=== PATIENT | male | born 1970 | race Caucasian/White ===

== ENCOUNTER 2016-09-20 02:30 | Inpatient (IN) | payer MEDICAID ==
[~2016-09-20] VITALS: Ht 170.2 cm; Wt 90.7 kg
[2016-09-20] MEDS ORDERED: NACL 0.9% 1,000 ML IV SCH (02:31)
--- NOTE | 2016-09-20 02:33 | NUR ---
PT JORGE ALS. TAKEN TO BED 3
[2016-09-20 02:35] VITALS: BP 162/97
[2016-09-20] MEDS ORDERED: MORPHINE SULFATE 4 MG/ML SYR IVP ONE ×2 (02:35→03:55)
[2016-09-20] MEDS ORDERED: ONDANSETRON 4 MG/2 ML VIAL IVP ONE (02:35)
--- NOTE | 2016-09-20 02:35 | NUR ---
PT TAKEN TO CT
--- NOTE | 2016-09-20 02:44 | NUR ---
PT RETURN FROM CT
--- NOTE | 2016-09-20 02:45 | NUR ---
BIBA 46 Y/O M W/ C/O EPIGASTRIC PAIN AND NAUSEA X 4 HRS AGO . MED HX HERNIA TO L UPPER QUADRANT AND DM. PATIENT STATES PAIN OF 10/10 AT THIS TIME; VSS; PATIENT POSITIONED FOR COMFORT; HOB ELEVATED; BEDRAILS UP X2; BED DOWN. ER MD MADE AWARE OF PT STATUS.
[2016-09-20 03:01] LABS: BASOPHILS # (AUTO) 0.2 K/uL (0.00-0.22); BASOPHILS % (AUTO) 2.9 % (0.0-2.0); EOSINOPHILS # (AUTO) 0.2 K/uL (0-0.4); EOSINOPHILS % (AUTO) 2.5 % (0.0-4.0); HEMATOCRIT 43.9 % (36-52); HEMOGLOBIN 14.1 g/dL (12.0-18.0); LYMPHOCYTES # (AUTO) 1.6 K/uL (2.0-11.5); LYMPHOCYTES % (AUTO) 24.7 % (20.5-51.1); MEAN CORPUSCULAR HEMOGLOBIN 28 pg (27-31); MEAN CORPUSCULAR HGB CONC 32 g/dL (33-37); MEAN CORPUSCULAR VOLUME 87 fL (80-94); MONOCYTES # (AUTO) 0.2 K/uL (0.8-1.0); MONOCYTES % (AUTO) 3.7 % (1.7-9.3); NEUTROPHILS # (AUTO) 4.4 K/uL (1.8-7.7); NEUTROPHILS % (AUTO) 66.2 % (42.2-75.2); PLATELET COUNT (AUTO) 176 K/uL (140-450); RED BLOOD CELL COUNT(AUTO) 5.06 MIL/uL (4.20-6.10); RED CELL DISTRIBUTION WIDTH 13.6 % (11.6-13.7); WHITE BLOOD COUNT (AUTO) 6.6 K/uL (4.8-10.8)
--- NOTE | 2016-09-20 03:12 | NUR ---
X-Ray at bedside.
[2016-09-20 03:16] LABS: ALBUMIN 3.6 g/dL (3.4-5.0); ANION GAP 10.4 (8-16); CALCIUM 8.1 mg/dL (8.5-10.1); CARBON DIOXIDE 28.8 mmol/L (21-32); CREATININE 0.9 mg/dL (0.7-1.3); POTASSIUM 3.2 mmol/L (3.5-5.1); TOTAL BILIRUBIN 0.5 mg/dL (0.0-1.0); TOTAL PROTEIN, SERUM 7.8 g/dL (6.4-8.2)
--- NOTE | 2016-09-20 03:23 | NUR ---
LAST TIME PT ATE WAS 10:00AM BREAKFAST BURRITO. LAST DRINK 23:00 09/19/16 JUICE
--- NOTE | 2016-09-20 03:31 | NUR ---
Patient noted to have existing wounds upon arrival to ER. Photos taken of wound and placed in chart. Wound covered with dressing. Physician informed.
--- NOTE | 2016-09-20 03:38 | NUR ---
DR. ARAMBULA AT BEDSIDE EVALUATING PT.
--- NOTE | 2016-09-20 03:40 | NUR ---
DR. RIBERA OF [facility] EVALUATING PATIENT AT BEDSIDE
--- NOTE | 2016-09-20 03:49 | NUR ---
Dr. Fong evaluating patient at bedside.
[2016-09-20] MEDS ORDERED: POTASSIUM CHL 20 MEQ/NACL 0.9% 1,000 ML IV ONE (04:20)
--- NOTE | 2016-09-20 04:56 | NUR ---
Patient will be admitted to care of DR. CONCEPCION. Admited to TELE. Will go to [id number]. Belongings list completed. Report GIVEN TO FLAKITA LOWERY. TRANSFERRED TO FLOOR VIA GURNEY ACCOMPANIED BY RN AND EMT ON GUARDED CONDITION. ATTACHED TO PIGMENT MAKING SUPERVISOR.
--- NOTE | 2016-09-20 05:00 | NUR ---
ADMITTED THIS 46 YEAR OLD MALE FROM ER WITH CC OF ABDOMINAL PAIN, AMBULATORY TO BED WITH ASSIST, ASSESSMENT DONE, VITAL SIGNS TAKEN, BP SLIGHTLY ELEVATED, DENIES ANY PAIN, PT WANTS SOMETHING TO DRINK, WILL WAIT FOR DOCTOR'S ORDERS, ORIENTED TO ROOM AND CALL LIGHT, SAFETY MEASURES IN PLACE, CALL LIGHT WITHIN REACH.
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
[2016-09-20] MEDS: NACL 0.9% 1,000 ML IV SCH ×2 (05:17→14:50)
[2016-09-20 05:20] VITALS: BP 150/95
[2016-09-20] MEDS ORDERED: ONDANSETRON 4 MG/2 ML VIAL IM/IVP PRN (05:20)
[2016-09-20] MEDS ORDERED: HYDROcodone/APAP 7.5/325 MG 1 TAB PO PRN (05:20)
[2016-09-20] MEDS ORDERED: DOCUSATE SODIUM 100 MG GELCAP PO PRN (05:20)
[2016-09-20] MEDS ORDERED: DEXTROSE 50% 50 ML SYR IVP PRN (05:50)
[2016-09-20] MEDS ORDERED: INSULIN LISPRO SLIDING SCALE 100 UNITS/ML VIAL SUBQ PRN (05:50)
--- NOTE | 2016-09-20 05:50 | NUR ---
DR ARAMBULA AND MANAGER MINING YOLI TALKED TO PT, DR ARAMBULA ORDERED PSYCH CONSULT WITH DR SCALES.
[2016-09-20] MEDS ORDERED: KETOROLAC 30 MG/ML VIAL IVP PRN (05:55)
[2016-09-20] MEDS ORDERED: KCL 20 MEQ/WATER INJ PREMIX 200 ML IV SCH (06:00)
--- NOTE | 2016-09-20 06:13 | NUR ---
CHARGE NURSE KRISTINA TRIED TO INSERT NGT BUT PT REFUSED SAYING "TAKE IT OUT, TAKE IT OUT, NO MORE", RISK AND BENEFITS EXPLAINED BUT PT STILL REFUSING, DR ARAMBULA MADE AWARE.
[2016-09-20] MEDS: HYDROmorphone 1 MG/ML AMP IVP PRN ×2 (06:25→22:06)
[2016-09-20 06:26] LABS: PROTHROMBIN TIME 10.6 secs (10.8-13.4)
[2016-09-20] MEDS: BLOOD GLUCOSE MONITORING 1 DEV DEV FS SCH ×4 (06:30→21:00)
[2016-09-20 07:15] LABS: AMYLASE 33 U/L (25-115); FREE T4 (FREE THYROXINE) 1.01 ng/dL (0.76-1.46); PHOSPHORUS 2.6 mg/dL (2.5-4.9)
[2016-09-20 07:17] LABS: APPEARANCE,URINE CLEAR (CLEAR); BILIRUBIN,URINE NEGATIVE (NEGATIVE); BLOOD, URINE NEGATIVE (NEGATIVE); COLOR,URINE YELLOW (YELLOW); LEUKOCYTE ESTERASE ,URINE NEGATIVE (NEGATIVE); NITRITE, URINE NEGATIVE (NEGATIVE); PROTEIN,URINE NEGATIVE (NEGATIVE); UGLUCOSE NEGATIVE (NEGATIVE)
[2016-09-20 07:28] LABS: ALCOHOL, BLOOD < 3 mg/dL (<3); CHOL/HDL RATIO 2.6 (1-4.5); CHOLESTEROL 133 mg/dL (<200); HDL CHOLESTEROL 52 mg/dL (40-60); LDL (CALC) 67 mg/dL (60-100); TRIGLYCERIDES 72 mg/dL (30-150)
--- NOTE | 2016-09-20 07:47 | NUR ---
PATIENT LEFT THE UNIT FOR SURGERY
[2016-09-20 07:54] LABS: AMPHETAMINE, URINE POS. ng/ml (NEG <=1000); BARBITURATE, URINE NEG. ng/ml (NEG <=200); BENZODIAZEPINE, URINE NEG. ng/mL (NEG <=200); CANNABINOID, URINE NEG. ng/mL (NEG <=50); COCAINE, URINE NEG. ng/mL (NEG <=300); OPIATE, URINE POS. ng/mL (NEG <=2000); PHENCYCLIDINE SCREEN,URINE NEG. ng/mL (NEG <=25)
[2016-09-20] MEDS ORDERED: SUCCINYLCHOLINE CHLORIDE 200 MG/10 ML VIAL IVP ONE (07:57)
[2016-09-20] MEDS ORDERED: KETOROLAC 30 MG/ML VIAL ONE (07:57)
[2016-09-20] MEDS ORDERED: PROPOFOL 200 MG/20 ML VIAL IV ONE (07:57)
[2016-09-20] MEDS ORDERED: PHENYLEPHRINE 10 MG/ML VIAL ONE (07:57)
[2016-09-20] MEDS ORDERED: ROCURONIUM 50 MG/5 ML VIAL IV ONE (07:57)
[2016-09-20] MEDS ORDERED: DESFLURANE 240 ML BTL INH ONE (07:57)
[2016-09-20] MEDS ORDERED: GLYCOPYRROLATE 0.2 MG/ML VIAL ONE (07:57)
[2016-09-20] MEDS ORDERED: ONDANSETRON 4 MG/2 ML VIAL ONE (07:57)
[2016-09-20] MEDS ORDERED: ceFAZolin 1,000 MG VIAL ONE (08:06)
[2016-09-20] MEDS ORDERED: fentaNYL 0.05 MG/ML VIAL ONE (08:08)
[2016-09-20] MEDS ORDERED: BUPIVACAINE-MPF/EPI 0.5% 30 ML VIAL INJ ONE (08:17)
[2016-09-20] MEDS ORDERED: HYDROmorphone 1 MG/ML AMP IVP PRN (08:30)
[2016-09-20] MEDS ORDERED: ONDANSETRON 4 MG/2 ML VIAL IVP PRN (08:30)
[2016-09-20] MEDS ORDERED: BLOOD GLUCOSE MONITORING 1 DEV DEV FS SCH (08:32)
[2016-09-20] MEDS: PANTOPRAZOLE 40 MG INJ VIAL IVP SCH (09:00)
[2016-09-20] MEDS ORDERED: POTASSIUM CHLORIDE 10 MEQ TABER PO ONE (09:40)
--- NOTE | 2016-09-20 09:40 | NUR ---
PATIENT HAS BEEN SCREENED AND CATEGORIZED MODERATE NUTRITION RISK. PATIENT WILL BE SEEN WITHIN 3-5 DAYS OF ADMISSION. 09/22/16-09/24/[address]
--- NOTE | 2016-09-20 10:05 | NUR ---
PATIENT BACK FROM SURGERY. PT S/P VENTRAL HERNIA REPAIR. DRESSING TO THE ABD CLEAN DRY AND INTACT. TEMP 96.8 BP: 115/79 HR: 52 O2 SAT: 100 ON ROOM AIR. WILL CONTINUE TO MONITOR
[2016-09-20] MEDS ORDERED: LEVOFLOXACIN 500 MG/D5W PREMIX 100 ML IV SCH (11:00)
[2016-09-20] MEDS ORDERED: ESCITALOPRAM 20 MG TAB PO SCH (11:24)
[2016-09-20 12:00] VITALS: BP 118/77
[2016-09-20] MEDS ORDERED: metroNIDAZOLE 500 MG/NS PREMIX 100 ML IV SCH (13:00)
--- NOTE | 2016-09-20 13:00 | NUR ---
PATIENT ASLEEP IN BED. NO S/S OF DISTRESS NOTED
[2016-09-20 16:00] VITALS: BP 118/75
--- NOTE | 2016-09-20 18:00 | NUR ---
PATIENT TOLERATING FULL LIQUID DIET WELL
--- NOTE | 2016-09-20 19:20 | NUR ---
PATIENT REPORT GIVEN AT BEDSIDE. PATIENT ENDORSED IN STABLE CONDITION
--- NOTE | 2016-09-20 19:30 | NUR ---
RECEIVED REPORTS FROM DAY RN. PATIENT RESTING IN BED, NO S/S OF ACUTE DISTRESS NOTED, ALERT AWAKE AND ORIENTED X4. PATIENT DENIES PAIN AT THIS TIME. IV PATENT AND INTACT, FLUIDS INFUSING WELL. DRESSING LUQ DRY AND INTACT. BOWL SOUNDS ACTIVE AND PRESENT IN ALL 4 QUADRANTS. PLAN OF CARE DISCUSSED, VERBALIZED UNDERSTANDING. CALL LIGHT WITHIN REACH, SAFETY MEASURE ENSURED, WILL CONTINUE TO MONITOR.
[2016-09-20 20:00] VITALS: BP 130/92
--- NOTE | 2016-09-20 22:30 | NUR ---
PATIENT ASLEEP IN BED, RESPIRATION EVEN AND UNLABORED, NO S/S OF ACUTE DISTRESS NOTED, WILL CONTINUE TO MONITOR
[2016-09-21] VITALS: BP 127/79
[2016-09-21] MEDS: HYDROmorphone 1 MG/ML AMP IVP PRN ×3 (01:54→20:18)
--- NOTE | 2016-09-21 03:24 | NUR ---
PATIENT ASLEEP IN BED, RESPIRATION EVEN AND UNLABORED, NO S/S OF ACUTE DISTRESS NOTED, WILL CONTINUE TO MONITOR
[2016-09-21 04:00] VITALS: BP 117/71
--- NOTE | 2016-09-21 05:13 | NUR ---
PATIENT REPORTED PAIN, PAIN MEDICATION GIVEN ORDERED, WILL CONTINUE TO MONITOR
[2016-09-21 06:24] LABS: LYMPHOCYTES # (AUTO) 1.4 K/uL (2.0-11.5); MONOCYTES # (AUTO) 0.4 K/uL (0.8-1.0); RED CELL DISTRIBUTION WIDTH 13.8 % (11.6-13.7)
[2016-09-21] MEDS: BLOOD GLUCOSE MONITORING 1 DEV DEV FS SCH ×5 (06:46→21:31)
[2016-09-21] MEDS: NACL 0.9% 1,000 ML IV SCH ×3 (06:47→20:41)
[2016-09-21 06:53] LABS: BASOPHILS # (AUTO) 0.1 K/uL (0.00-0.22); BASOPHILS % (AUTO) 2.2 % (0.0-2.0); EOSINOPHILS # (AUTO) 0.3 K/uL (0-0.4); HEMOGLOBIN 13.1 g/dL (12.0-18.0); LYMPHOCYTES % (AUTO) 21.3 % (20.5-51.1); MEAN CORPUSCULAR HEMOGLOBIN 29 pg (27-31); MEAN CORPUSCULAR HGB CONC 34 g/dL (33-37); MEAN CORPUSCULAR VOLUME 87 fL (80-94); MONOCYTES % (AUTO) 5.6 % (1.7-9.3); NEUTROPHILS # (AUTO) 4.4 K/uL (1.8-7.7); NEUTROPHILS % (AUTO) 66.9 % (42.2-75.2); PLATELET COUNT (AUTO) 154 K/uL (140-450); RED BLOOD CELL COUNT(AUTO) 4.49 MIL/uL (4.20-6.10); WHITE BLOOD COUNT (AUTO) 6.6 K/uL (4.8-10.8)
--- NOTE | 2016-09-21 07:20 | NUR ---
ENDORSED PLAN OF CARE TO DAY RN. PATIENT IS IN STABLE CONDITION.
--- NOTE | 2016-09-21 07:20 | NUR ---
RECEIVED PATIENT REPORT AT BEDSIDE. PATIENT ASLEEP BUT EASILY ABUSABLE. NO S/S OF DISTRESS NOTED. IV LINE TO THE LEFT AC INTACT WITH IVF INFUSING WELL. PATIENT ON TELE MONITORING. BED LOWERED WITH CALL LIGHT WITHIN REACH. WILL CONTINUE TO MONITOR
[2016-09-21 07:25] LABS: ANION GAP 9.6 (8-16); CALCIUM 7.9 mg/dL (8.5-10.1); CARBON DIOXIDE 29.1 mmol/L (21-32); CREATININE 0.7 mg/dL (0.7-1.3); POTASSIUM 3.7 mmol/L (3.5-5.1)
[2016-09-21 07:50] LABS: MAGNESIUM 1.6 mg/dL (1.8-2.4); PHOSPHORUS 3.3 mg/dL (2.5-4.9)
[2016-09-21 08:00] VITALS: BP 138/89
[2016-09-21] MEDS: PANTOPRAZOLE 40 MG INJ VIAL IVP SCH (08:34)
[2016-09-21] MEDS: ESCITALOPRAM 20 MG TAB PO SCH (08:34)
[2016-09-21 09:13] LABS: T4 (THYROXINE) 5.1 ug/dL (4.5-12.0)
[2016-09-21 12:00] VITALS: BP 129/90
--- NOTE | 2016-09-21 12:30 | NUR ---
PATIENT AMBULATED TO THE BATHROOM. PATIENT REPORTS OF PASSING GAS BUT NO BM. NO S/S OF DISTRESS NOTED
[2016-09-21] MEDS ORDERED: POLYETHYLENE GLYCOL 17 GM/PKT PO SCH (12:59)
--- NOTE | 2016-09-21 13:04 | NUR ---
PATIENT SEEN BY DR RIDDLE. WOUND DRESSING REMOVED BY THE DOCTOR. DOMINGO CLEAN, DRY AND INTACT. DR ORDERS TO KEEP THE INCISION OPEN TO AIR
[2016-09-21 16:00] VITALS: BP 134/86
--- NOTE | 2016-09-21 18:20 | NUR ---
PATIENT TOLERATED REGULAR DIET WELL. NO C/O PAIN
--- NOTE | 2016-09-21 19:18 | NUR ---
PATIENT REPORT GIVEN AT BEDSIDE. PATIENT ENDORSED IN STABLE CONDITION
--- NOTE | 2016-09-21 19:19 | NUR ---
RECEIVED REPORT,ASSUMED CARE. PT AWAKE, ALERT AND ABLE TO MAKE NEEDS KNOWN. NO S/S OF RESPIRATORY DISTRESS AT THIS TIME. NO C/O PAIN. IV ACCESS TO LT AC, GAUGE 20 INTACT AND PATENT. DISCUSSED PLAN OF CARE, PT VERBALIZED UNDERSTANDING. FALL PRECAUTION IN PLACE AT ALL TIMES. ABDOMINAL SURGICAL INCISION WITH DRESSING, NO ACTIVE BLEEDING NOTED AT THIS TIME. WILL CONTINUE TO MONITOR.
[2016-09-21 20:00] VITALS: BP 142/96
--- NOTE | 2016-09-21 20:58 | NUR ---
PT REPORTS RELIEF FROM PAIN 0/10. NO ACUTE CHANGES NOTED. NO S/S OF RESPIRATORY DISTRESS. WILL CONTINUE TO MONITOR.
--- NOTE | 2016-09-21 21:31 | NUR ---
BLOOD SUGAR CHECKED, 100MG/DL. NO INSULIN PER SLIDING SCALE.
[2016-09-22] VITALS: BP 140/93
[2016-09-22] MEDS: HYDROmorphone 1 MG/ML AMP IVP PRN (01:34)
--- NOTE | 2016-09-22 02:58 | NUR ---
PT AWAKE, COMPLAINS OF LOWER ABDOMINAL PAIN. 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 PT C/O CONSTIPATION, ASSISTED TO THE BATHROOM FOR BOWEL ELIMINATION BUT UNSUCCESSFUL. PRUNE JUICE GIVEN AND ENCOURAGED INCREASE FLUID INTAKE. MEDICATED WITH NORCO 7.5/325MG ORDERED. WILL CONTINUE TO MONITOR.
--- NOTE | 2016-09-22 03:30 | NUR ---
PT REPORTS RELIEF OF PAIN, "I WENT TO THE BATHROOM AND JUST PASSED GAS. I FEEL BETTER."
[2016-09-22 04:00] VITALS: BP 116/68
[2016-09-22] MEDS: BLOOD GLUCOSE MONITORING 1 DEV DEV FS SCH ×4 (06:33→21:07)
[2016-09-22] MEDS ORDERED: MAG SULF 2000 MG/WATER PREMIX 50 ML IV SCH (07:00)
[2016-09-22] MEDS ORDERED: BISACODYL 5 MG TABEC PO SCH (07:00)
[2016-09-22 07:06] LABS: BASOPHILS # (AUTO) 0.2 K/uL (0.00-0.22); EOSINOPHILS # (AUTO) 0.1 K/uL (0-0.4); EOSINOPHILS % (AUTO) 1.7 % (0.0-4.0); HEMATOCRIT 39.7 % (36-52); HEMOGLOBIN 13.2 g/dL (12.0-18.0); LYMPHOCYTES % (AUTO) 15.3 % (20.5-51.1); MEAN CORPUSCULAR HEMOGLOBIN 29 pg (27-31); MEAN CORPUSCULAR HGB CONC 33 g/dL (33-37); MEAN CORPUSCULAR VOLUME 86 fL (80-94); MONOCYTES # (AUTO) 0.5 K/uL (0.8-1.0); MONOCYTES % (AUTO) 7.3 % (1.7-9.3); NEUTROPHILS # (AUTO) 4.7 K/uL (1.8-7.7); NEUTROPHILS % (AUTO) 72.7 % (42.2-75.2); PLATELET COUNT (AUTO) 154 K/uL (140-450); RED BLOOD CELL COUNT(AUTO) 4.62 MIL/uL (4.20-6.10); RED CELL DISTRIBUTION WIDTH 13.2 % (11.6-13.7); WHITE BLOOD COUNT (AUTO) 6.5 K/uL (4.8-10.8)
--- NOTE | 2016-09-22 07:10 | NUR ---
RECEIVED PATIENT REPORT AT BEDSIDE. PATIENT AWAKE, ALERT AND ORIENTED. PATIENT C/O CONSTIPATION. WILL MEDICATE. IV LINE TO THE LEFT AC INTACT WITH MG RIDER INFUSING. PATIENT ON TELE MONITORING. BED LOWERED WITH CALL LIGHT WITHIN REACH. WILL CONTINUE TO MONITOR
[2016-09-22 07:19] LABS: ANION GAP 8.3 (8-16); CALCIUM 7.9 mg/dL (8.5-10.1); CARBON DIOXIDE 29.4 mmol/L (21-32); CREATININE 0.6 mg/dL (0.7-1.3); POTASSIUM 3.7 mmol/L (3.5-5.1)
[2016-09-22 07:23] LABS: MAGNESIUM 1.7 mg/dL (1.8-2.4); PHOSPHORUS 3.3 mg/dL (2.5-4.9)
--- NOTE | 2016-09-22 07:30 | NUR ---
PT AWAKE AND VERBALLY RESPONSIVE. NO S/S OF RESPIRATORY DISTRESS. PT IN STABLE CONDITION. STARTED ON MG 2GM IVPB NO ADVERSE REACTION NOTED AT THIS TIME. ENDORSED TO NEXT SHIFT FOR CONTINUITY OF CARE AND TO GIVE DULCOLAX.
[2016-09-22 08:00] VITALS: BP 136/79
[2016-09-22] MEDS: HYDROcodone/APAP 5/325 MG 1 TAB TAB PO SCH ×4 (08:00→17:37)
--- NOTE | 2016-09-22 08:00 | NUR ---
PATIENT AMBULATED TO THE BATHROOM TO HAVE A BM BUT WAS UNABLE. PATIENT STATES THAT HE WAS ABLE TO PASS GAS AND WAS RELIEVED. PATIENT DENIES PAIN ON HIS INCISION SITE AND STATES THAT HIS PAIN IS CAUSED BY HIS CONSTIPATION. WILL NOTIFY ATTENDING DOCTOR
[2016-09-22] MEDS: PANTOPRAZOLE 40 MG INJ VIAL IVP SCH (08:49)
[2016-09-22] MEDS: POLYETHYLENE GLYCOL 17 GM/PKT PO SCH (08:50)
[2016-09-22] MEDS: ESCITALOPRAM 20 MG TAB PO SCH (08:50)
[2016-09-22] MEDS: DOCUSATE SODIUM 100 MG GELCAP PO SCH ×2 (08:50→20:23)
[2016-09-22] MEDS ORDERED: BISACODYL 10 MG SUPP RC SCH (09:34)
--- NOTE | 2016-09-22 09:40 | NUR ---
PATIENT REFUSED TO HAVE DULCOLAX SUPPOSITORY. PATIENT STATES THAT HE WILL WAIT FOR THE PO MEDS TO TAKE EFFECT FIRST AND MAY CONSIDER HAVING THE SUPPOSITORY LATER
--- NOTE | 2016-09-22 09:46 | NUR ---
PATIENT SEEN BY DR RIDDLE. PATIENT REPORTS TO THE DR HIS FEELING OF CONSTIPATION. PATIENT DENIES PAIN AT THIS TIME. DR ORDERS DULCOLAX SUPPOSITORY. PER IT IS OK TO GIVE SUPPOSITORY TOGETHER WITH PO DULCOLAX
--- NOTE | 2016-09-22 14:04 | NUR ---
PATIENT ASLEEP IN BED. NO S/S OF DISTRESS NOTED
[2016-09-22 16:00] VITALS: BP 118/87
--- NOTE | 2016-09-22 16:40 | NUR ---
PATIENT AMBULATED AROUND THE UNIT. NO S/S OF DISTRESS NOTED
[2016-09-22] MEDS ORDERED: HYDROcodone/APAP 5/325 MG 1 TAB TAB PO PRN (17:50)
[2016-09-22] MEDS ORDERED: MAGNESIUM CITRATE 300 ML BTL PO SCH (17:50)
--- NOTE | 2016-09-22 19:10 | NUR ---
PATIENT ENDORSED TO THE NIGHT NURSE. PATIENT ENDORSED IN STABLE CONDITION
--- NOTE | 2016-09-22 19:11 | NUR ---
RECEIVED REPORT,ASSUMED CARE. PT AWAKE, ALERT AND VERBALLY RESPONSIVE. NO S/S OF RESPIRATORY DISTRESS AT THIS TIME. NO C/O PAIN. IV ACCESS TO LT AC, GAUGE 20 REMAINS INTACT AND PATENT. DISCUSSED PLAN OF CARE, PT VERBALIZED UNDERSTANDING. FALL PRECAUTION IN PLACE AT ALL TIMES. ABDOMINAL SURGICAL INCISION WITH DRESSING, NO ACTIVE BLEEDING NOTED AT THIS TIME. PT REPORTS OF NOT HAVING BM THE ENTIRE DAY. PT CURRENTLY DRINKING MAG CITRATE. WILL CONTINUE TO MONITOR.
[2016-09-22 20:00] VITALS: BP 136/91
--- NOTE | 2016-09-22 20:40 | NUR ---
PT REFUSED IVF. EXPLAINED RISKS/BENEFITS, TO NO AVAIL.
[2016-09-22] MEDS: NACL 0.9% 1,000 ML IV SCH (20:41)
--- NOTE | 2016-09-22 21:07 | NUR ---
BLOOD SUGAR CHECKED 115MG/DL WITH NO INSULIN COVERAGE PER SLIDING SCALE. WILL CONTINUE TO MONITOR. PT DENIES PAIN AT THIS TIME. CALL LIGHT WITHIN EASY REACH.
[2016-09-23] VITALS: BP 117/72
--- NOTE | 2016-09-23 00:30 | NUR ---
ROUNDS MADE, PT SOUND ASLEEP WITH NO S/S OF RESPIRATORY DISTRESS. WILL CONTINUE TO MONITOR.
[2016-09-23 06:22] LABS: HEMATOCRIT 38.7 % (36-52)
[2016-09-23 06:29] LABS: HEMOGLOBIN 12.9 g/dL (12.0-18.0); MEAN CORPUSCULAR HEMOGLOBIN 29 pg (27-31); MEAN CORPUSCULAR HGB CONC 33 g/dL (33-37); MEAN CORPUSCULAR VOLUME 86 fL (80-94); PLATELET COUNT (AUTO) 167 K/uL (140-450); RED BLOOD CELL COUNT(AUTO) 4.49 MIL/uL (4.20-6.10); RED CELL DISTRIBUTION WIDTH 13.2 % (11.6-13.7); WHITE BLOOD COUNT (AUTO) 6.4 K/uL (4.8-10.8)
[2016-09-23] MEDS: BLOOD GLUCOSE MONITORING 1 DEV DEV FS SCH ×3 (06:29→16:30)
[2016-09-23 06:32] LABS: ANION GAP 7.7 (8-16); CALCIUM 7.8 mg/dL (8.5-10.1); CARBON DIOXIDE 31.5 mmol/L (21-32); CREATININE 0.7 mg/dL (0.7-1.3); POTASSIUM 4.2 mmol/L (3.5-5.1)
[2016-09-23 06:56] LABS: NEUTROPHILS % (MANUAL) 71 (43-65)
[2016-09-23 06:57] LABS: BASOPHILS % (MANUAL) 1 % (0-2); EOSINOPHILS % (MANUAL) 2 % (0-4); LYMPHOCYTES % (MANUAL) 25 % (20-46); MONOCYTES % (MANUAL) 1 % (5-12)
--- NOTE | 2016-09-23 07:29 | NUR ---
PT AWAKE AND VERBALLY RESPONSIVE. NO S/S OF RESPIRATORY DISTRESS. PT IN STABLE CONDITION. PT HAD NO BM THROUGHOUT THE SHIFT. ENDORSED TO NEXT SHIFT FOR CONTINUITY OF CARE.
--- NOTE | 2016-09-23 07:30 | NUR ---
PT AWAKE AND ALERT, NO SIGNS OF ACUTE DISTRESS. BOWEL SOUNDS ACTIVE IN ALL 4 QUADRANTS. BOWEL AND BLADDER CONTINENCE. AMBULATORY WITH BRP. SURGICAL ABDOMINAL INCISION CLOSED WITH DOMINGO AND COVERED WITH A DRY DRESSING. IV PATENT AND ASYMPTOMATIC. RE-ORIENTED PT TO HOSPITAL AND TO UNIT, PT VERBALIZED UNDERSTANDING. BED IN LOW POSITION WITH BILATERAL HALF SIDE RAILS UP, CALL LIGHT WITHIN REACH.
[2016-09-23 08:00] VITALS: BP 132/93
[2016-09-23] MEDS ORDERED: BISACODYL 10 MG SUPP RC SCH (08:40)
--- NOTE | 2016-09-23 09:10 | NUR ---
PATIENT HAD BOWEL MOVEMENT, PER DR RIBERA HELD SUPPOSITORY.
--- NOTE | 2016-09-23 09:10 | NUR ---
PT INFORMED ME HE HAD A BOWEL MOVEMENT, NOTIFIED DR RIBERA.
[2016-09-23] MEDS: ESCITALOPRAM 20 MG TAB PO SCH (09:17)
[2016-09-23] MEDS: PANTOPRAZOLE 40 MG INJ VIAL IVP SCH (09:17)
[2016-09-23] MEDS: DOCUSATE SODIUM 100 MG GELCAP PO SCH (09:17)
[2016-09-23] MEDS: POLYETHYLENE GLYCOL 17 GM/PKT PO SCH (09:25)
[2016-09-23] MEDS ORDERED: ESCI10TA PO (11:09)
[2016-09-23] MEDS ORDERED: DOCU-67 PO (11:09)
[2016-09-23 12:36] LABS: HEMOGLOBIN A1C 5.8 % (4.8-5.6)
[2016-09-23 16:00] VITALS: BP 133/82
--- NOTE | 2016-09-23 17:40 | NUR ---
PATIENT REFUSED DISCHARGE PHOTOGRAPHS.
--- NOTE | 2016-09-23 17:55 | NUR ---
PT AWAKE AND ALERT, NO SIGNS OF ACUTE DISTRESS. EDUCATED PATIENT ON NEW PRESCRIPTIONS, SURGICAL INCISION CARE, SIGNS AND SYMPTOMS OF WORSENING CONDITION, EMERGENCY MEDICAL CARE AND DIET. PT VERBALIZED UNDERSTANDING. PT IS HOMELESS, PROVIDED INFORMATION ON [facility] IN THE AREA AND PROVIDED PATIENT WITH BUS PASS PER REQUEST. PT DENIES PAIN AT THIS TIME. ESCORTED PATIENT OUT OF FRONT LOBBY TO LEAVE VIA PUBLIC BUS.
== END 2016-09-23 17:55 | disposition home or self-care (01) | DRG 228 ==
LOC: MED 02:30 → MTU 05:21
PROVIDERS: ADMIT Family Medicine; ATTEND Family Medicine
PROC: 0YU60JZ Supplement Left Inguinal Region with Synthetic Substitute, Open Approach (ICD-10-PCS; principal; 2016-09-20 08:00)
PROC: B246ZZZ Ultrasonography of Right and Left Heart (ICD-10-PCS; 2016-09-23)
DX: K40.30 Unilateral inguinal hernia, with obstruction, without gangrene, not specified as recurrent (principal); D68.59 Other primary thrombophilia; N17.0 Acute kidney failure with tubular necrosis; K43.6 Other and unspecified ventral hernia with obstruction, without gangrene; E11.65 Type 2 diabetes mellitus with hyperglycemia; E83.42 Hypomagnesemia; E78.5 Hyperlipidemia, unspecified; E87.6 Hypokalemia; F15.10 Other stimulant abuse, uncomplicated; F25.1 Schizoaffective disorder, depressive type; F32.9 Major depressive disorder, single episode, unspecified; F17.210 Nicotine dependence, cigarettes, uncomplicated; E66.9 Obesity, unspecified; Z68.31 Body mass index [BMI] 31.0-31.9, adult; Z59.0 Homelessness; Z71.51 Drug abuse counseling and surveillance of drug abuser
CPT/HCPCS: 36415; 71010; 80048; 80053; 80305; 81003; 82150; 82948; 83036; 83690; 83735; 83880; 84100; 84436; 84439; 84443; 84479; 85025; 85610; 85730; 86886; 86900; 86901; 87081; 93005; 93925; 93970; 96361; 96365; 96375; 99285; C9113; G0482; J0330; J0690; J1170; J1815; J1885; J2270; J2370; J2405; J2704; J3010; J3475; J3480; J3490; J7030; J7060; Q0092

== ENCOUNTER 2017-03-20 19:39 | Inpatient (IN) | payer SELFPAY ==
[~2017-03-20] VITALS: Ht 167.6 cm; Wt 101.6 kg
[~2017-03-20 19:39] MED LIST: DOCU-299 PO; ESCI10TA PO
[2017-03-20 19:56] VITALS: BP 160/95
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
[2017-03-21] MEDS ORDERED: KETOROLAC 30 MG/ML VIAL IVP ONE (00:10)
[2017-03-21] MEDS ORDERED: NACL 0.9% 1,000 ML IV ONE (00:10)
[2017-03-21] MEDS ORDERED: CLINDAMYCIN 900 MG in DEXTROSE 5% 100 ML IV ONE (00:40)
--- NOTE | 2017-03-21 01:00 | NUR ---
Patient appears to be resting comfortably in bed. Vital Signs within normal limits. Respirations even and unlabored.
[2017-03-21 01:05] LABS: BASOPHILS # (AUTO) 0.2 K/uL (0.00-0.22); BASOPHILS % (AUTO) 3.1 % (0.0-2.0); EOSINOPHILS # (AUTO) 0.2 K/uL (0-0.4); HEMOGLOBIN 12.8 g/dL (12.0-18.0); LYMPHOCYTES # (AUTO) 1.3 K/uL (2.0-11.5); LYMPHOCYTES % (AUTO) 18.5 % (20.5-51.1); MEAN CORPUSCULAR HEMOGLOBIN 28 pg (27-31); MEAN CORPUSCULAR HGB CONC 33 g/dL (33-37); MEAN CORPUSCULAR VOLUME 87 fL (80-94); MONOCYTES # (AUTO) 0.6 K/uL (0.8-1.0); MONOCYTES % (AUTO) 8.7 % (1.7-9.3); NEUTROPHILS # (AUTO) 4.9 K/uL (1.8-7.7); NEUTROPHILS % (AUTO) 66.7 % (42.2-75.2); PLATELET COUNT (AUTO) 215 K/uL (140-450); RED CELL DISTRIBUTION WIDTH 12.8 % (11.6-13.7); WHITE BLOOD COUNT (AUTO) 7.2 K/uL (4.8-10.8)
[2017-03-21] MEDS ORDERED: CLINDAMYCIN 900 MG/6 ML VIAL IV ONE (01:06)
[2017-03-21 01:25] LABS: PROTHROMBIN TIME 9.1 secs (10.8-13.4)
[2017-03-21 01:27] LABS: ANION GAP 7.2 (8-16); CARBON DIOXIDE 30.8 mmol/L (21-32)
[2017-03-21 01:32] LABS: ALBUMIN 1.4 g/dL (3.4-5.0); TOTAL BILIRUBIN 0.1 mg/dL (0.0-1.0)
[2017-03-21] MEDS: NACL 0.9% 1,000 ML IV SCH ×2 (02:13→12:13)
[2017-03-21] MEDS ORDERED: ACETAMINOPHEN 325 MG TAB PO PRN (02:15)
[2017-03-21] MEDS ORDERED: DOCUSATE SODIUM 100 MG GELCAP PO PRN (02:15)
[2017-03-21] MEDS ORDERED: HYDROcodone/APAP 7.5/325 MG 1 TAB PO PRN (02:15)
[2017-03-21] MEDS ORDERED: MORPHINE SULFATE 2 MG/ML SYR IVP PRN (02:15)
[2017-03-21] MEDS ORDERED: LORazepam 0.5 MG TAB PO PRN (02:15)
[2017-03-21] MEDS ORDERED: ONDANSETRON 4 MG/2 ML VIAL IM/IVP PRN (02:15)
[2017-03-21] MEDS ORDERED: ZOLPIDEM 5 MG TAB PO PRN (02:15)
--- NOTE | 2017-03-21 03:33 | NUR ---
Patient appears to be resting comfortably in bed. Vital Signs within normal limits. Respirations even and unlabored.
[2017-03-21 03:45] LABS: CHOL/HDL RATIO 3.7 (1-4.5); FREE T4 (FREE THYROXINE) 0.8 ng/dL (0.76-1.46); MAGNESIUM 2.3 mg/dL (1.8-2.4); PHOSPHORUS 4.4 mg/dL (2.5-4.9); THYROID STIMULATING HORMONE 6.54 uIU/mL (0.34-3.74)
--- NOTE | 2017-03-21 04:00 | NUR ---
pt placed on tele hold. pt made aware.all needs met at this time
--- NOTE | 2017-03-21 04:30 | NUR ---
Patient appears to be resting comfortably in bed. Vital Signs within normal limits. Respirations even and unlabored.
[2017-03-21] MEDS ORDERED: CLINDAMYCIN 600 MG in DEXTROSE 5% 50 ML IV ONE (04:45)
[2017-03-21] MEDS ORDERED: DEXTROSE 50% 50 ML SYR IVP PRN (04:50)
[2017-03-21] MEDS ORDERED: INSULIN LISPRO SLIDING SCALE 100 UNITS/ML VIAL SUBQ PRN (04:50)
--- NOTE | 2017-03-21 05:30 | NUR ---
Patient appears to be resting comfortably in bed. Vital Signs within normal limits. Respirations even and unlabored. unable to void at this time.
--- NOTE | 2017-03-21 07:21 | NUR ---
Pt report given to FRANK BOGGS. Transfer of care at this time.
--- NOTE | 2017-03-21 07:28 | NUR ---
PT ASLEEP, EASILY AROUSABLE, AAOX3, IN NAD. RESP EVEN AND UNLABORED, ON RA@98%. IV FLUIDS INFUSING WELL VIA PUMP. DENIES ANY PAIN AT THIS TIME. DOMINGO TO LEFT UPPER QUAD, PER PT, HE HAD A HERNIA REPAIR 2 MONTHS AGO. SITE C/D/I. STATES HE WILL HAVE THEM TAKEN OUT IN 2 WEEKS PER HIS MD. PT INFORMED OF PLAN OF CARE, VERBALIZED UNDERSTANDING. PTON TELE HOLD, NO AVAIALBLE BEDS AT THIS TIME. WILL CONT TO MONITOR.
[2017-03-21] MEDS: BLOOD GLUCOSE MONITORING 1 DEV DEV FS SCH ×4 (08:16→21:37)
--- NOTE | 2017-03-21 08:51 | NUR ---
PATIENT HAS BEEN SCREENED AND CATEGORIZED MODERATE NUTRITION RISK. PT WILL BE SEEN WITHIN 3-5 DAYS OF ADMISSION. 03/24/16-03/26/[address] Addendum: 03/21/17 at [address] CORRECTION: 03/24/17-03/26/17
[2017-03-21] MEDS: LACTOBACILLUS RHAMNOSUS GG 1 EACH CAP PO SCH (09:00)
--- NOTE | 2017-03-21 09:16 | NUR ---
NO ACUTE CHNAGES IN CONDITON,PT IN NAD. VSS. PT TRANSFERRED TO TELE 126a WITH RN.
--- NOTE | 2017-03-21 10:00 | NUR ---
RECEIVED PATIENT VIA GURNEY FROM ER. NURSE GAVE ME BEDSIDE REPORT. PATIENT HAS MULTIPLE SCABS ON LEFT LOWER EXTREMITY, A COUPLE ON HIS RIGHT LOWER EXTREMITY, AND SURGICAL SCAR WITH THREE DOMINGO ON HIS EPIGASTRIC AREA. PATIENT HAS IV TO RIGHT AC 20G ON SALINE LOCK AT THIS TIME. PATIENT DENIES ANY PAIN, NO SIGNS AND SYMPTOMS OF ACUTE DISTRESS NOTED AT THIS TIME. HE IS AAOX4. DISCUSSED PLAN OF CARE WITH PATIENT AND HE VERBALIZED UNDERSTANDING. ORIENTED PATIENT TO ROOM, EXPLAINED CALL LIGHT. BED IN LOWEST POSITION, SIDE RAILS UP X2, CALL LIGHT PLACED WITHIN REACH. WILL CONTINUE TO MONITOR.
[2017-03-21 10:33] LABS: BASOPHILS # (AUTO) 0.1 K/uL (0.00-0.22); BASOPHILS % (AUTO) 1.8 % (0.0-2.0); EOSINOPHILS # (AUTO) 0.2 K/uL (0-0.4); HEMATOCRIT 38.3 % (36-52); HEMOGLOBIN 12.4 g/dL (12.0-18.0); LYMPHOCYTES # (AUTO) 1.4 K/uL (2.0-11.5); MEAN CORPUSCULAR HEMOGLOBIN 29 pg (27-31); MEAN CORPUSCULAR HGB CONC 33 g/dL (33-37); MEAN CORPUSCULAR VOLUME 88 fL (80-94); MONOCYTES # (AUTO) 0.5 K/uL (0.8-1.0); MONOCYTES % (AUTO) 9.2 % (1.7-9.3); NEUTROPHILS # (AUTO) 3.5 K/uL (1.8-7.7); PLATELET COUNT (AUTO) 211 K/uL (140-450); RED BLOOD CELL COUNT(AUTO) 4.36 MIL/uL (4.20-6.10); RED CELL DISTRIBUTION WIDTH 12.6 % (11.6-13.7); WHITE BLOOD COUNT (AUTO) 5.7 K/uL (4.8-10.8)
[2017-03-21 11:16] LABS: ANION GAP 2.8 (8-16); CARBON DIOXIDE 30.4 mmol/L (21-32); CREATININE 0.9 mg/dL (0.7-1.3); POTASSIUM 5.2 mmol/L (3.5-5.1)
[2017-03-21 11:19] LABS: MAGNESIUM 2.3 mg/dL (1.8-2.4)
[2017-03-21 11:20] LABS: PHOSPHORUS 3.9 mg/dL (2.5-4.9)
[2017-03-21] MEDS: CLINDAMYCIN 600 MG in DEXTROSE 5% 50 ML IV SCH (12:00)
[2017-03-21] MEDS ORDERED: FUROSEMIDE 40 MG/4 ML VIAL IVP SCH (13:42)
[2017-03-21] MEDS ORDERED: SODIUM POLYSTYRENE 15 GM/60 ML UDBTL PO SCH (13:43)
[2017-03-21 16:00] VITALS: BP 158/96
--- NOTE | 2017-03-21 19:20 | NUR ---
ENDORSED PATIENT TO EQUIPMENT ENGINEERING TECHNICIAN NURSE FOR CONTINUITY OF CARE. PATIENT IN STABLE CONDITION.
--- NOTE | 2017-03-21 19:25 | NUR ---
PATIENT IS CURRENTLY RESTING IN BED SLEEPING ON AT THIS TIME SPEAKS MOSTLY [place]LAND[place] IVF INFUSING WELL IV SITE PATENT NO INFILTRATION NOTED. PATIENT HAS LT LOWER EXTREMITY WRAPPED WITH BANDAGES. PATIENT LT ANKLE AND RT AND LT HAND LOOK PUFFY.PATIENT IS ABLE TO AMBULATE TO THE BATHROOM WITH MINIMAL ASSISTANCE.EDUCATED ON HOW TO USE THE CALL LIGHT TO CALL THE NURSE AND GAVE HIM MY PHONE EXTENSION TO CALL ME WELL.
[2017-03-21 20:00] VITALS: BP 156/92
--- NOTE | 2017-03-21 20:00 | NUR ---
Patient's Plan of Care was discussed and reviewed with CLIP ON SUNGLASSES INSPECTOR: RICHARD MILLER
--- NOTE | 2017-03-21 22:30 | NUR ---
PATIENT WENT TO THE BATHROOM PATIENT IS ABLE TO WALK WITH MINIMAL ASSISTANCE BUT CONTINUES TO BE ENCOURAGED TO ASK FOR ASSISTANCE IF HE NEEDS TO PATIENT VERBALIZES UNDERSTANDING.BED SHEET WAS CHANGED.
--- NOTE | 2017-03-21 22:50 | NUR ---
KPAD WAS ORDERED FOR THE PATIENT BUT PATIENT HAS NO K-PAD AT THIS TIME SO I CALLED AND INFORMED FISH GRADER DELILAH AND HE BROUGHT THE K-PAD FOR THE PATIENT.
--- NOTE | 2017-03-21 23:00 | NUR ---
UA FOR UDS HAS BEEN COLLECTED AND SEND TO THE LAB.
--- NOTE | 2017-03-21 23:09 | NUR ---
PATIENT REFUSED THE K-PAD AT THIS TIME.I EXPLAINED THE PURPOSE OF THE K-PAD PATIENT STATES,"I DON'T WANT IT." PATIENT REFUSED K-PAD KEPT AT BEDSIDE IN CASE PATIENT CHANGES HIS MIND LATER. LT LEG WAS ELEVATED ON A PILLOW.CALL LIGHT WITHIN REACH.
[2017-03-21 23:24] LABS: APPEARANCE,URINE HAZY (CLEAR); BILIRUBIN,URINE NEGATIVE (NEGATIVE); BLOOD, URINE 3+ (NEGATIVE); COLOR,URINE YELLOW (YELLOW); LEUKOCYTE ESTERASE ,URINE NEGATIVE (NEGATIVE); NITRITE, URINE NEGATIVE (NEGATIVE); PH,URINE 6.5 (5.0-9.0); UGLUCOSE NEGATIVE (NEGATIVE)
[2017-03-21 23:31] LABS: BARBITURATE, URINE NEG. ng/ml (NEG <=200); BENZODIAZEPINE, URINE NEG. ng/mL (NEG <=200); CANNABINOID, URINE NEG. ng/mL (NEG <=50); COCAINE, URINE NEG. ng/mL (NEG <=300); OPIATE, URINE NEG. ng/mL (NEG <=2000); PHENCYCLIDINE SCREEN,URINE NEG. ng/mL (NEG <=25)
[2017-03-21 23:42] LABS: RBC,URINE 80-100 /HPF (0-5)
[2017-03-22] MEDS: CLINDAMYCIN 600 MG in DEXTROSE 5% 50 ML IV SCH ×5 (00:31→12:20)
[2017-03-22 04:35] VITALS: BP 155/95
[2017-03-22] MEDS: NACL 0.9% 1,000 ML IV SCH (05:50)
[2017-03-22] MEDS: BLOOD GLUCOSE MONITORING 1 DEV DEV FS SCH ×2 (05:53→12:19)
--- NOTE | 2017-03-22 06:15 | NUR ---
PATIENT SLEEPING WELL IVF INFUSING WELL IV SITE PATENT LEG ELEVATED ON A PILLOW.
--- NOTE | 2017-03-22 07:30 | NUR ---
PT REPORT RECEIVED FROM PURCHASING ENGINEER NURSE. PT IS CURRENTLY RESTING IN BED, IV NOTED TO THE RIGHT AC. 20G, IVF INFUSING WELL, IV SITE PATENT NO INFILTRATION NOTED. PATIENT HAS LT LOWER EXTREMITY WRAPPED WITH COMPRESSION DRESSING. DRESSING IS CLEAN AND DRY. DENIES PAIN AT THIS TIME. CALL LIGHT WITHIN REACH, BED LOWERED, WILL CONTINUE TO MONITOR.
--- NOTE | 2017-03-22 07:30 | NUR ---
PATIENT STABLE REPORT ENDORSED TO FLAKITA KWAN AT BEDSIDE HE WILL RESUME CARE OF THE PATIENT.
[2017-03-22 08:00] VITALS: BP 155/97
[2017-03-22 08:37] LABS: BASOPHILS # (AUTO) 0.2 K/uL (0.00-0.22); BASOPHILS % (AUTO) 4.2 % (0.0-2.0); EOSINOPHILS # (AUTO) 0.2 K/uL (0-0.4); EOSINOPHILS % (AUTO) 3.7 % (0.0-4.0); HEMATOCRIT 38.1 % (36-52); HEMOGLOBIN 12.8 g/dL (12.0-18.0); LYMPHOCYTES # (AUTO) 1.1 K/uL (2.0-11.5); LYMPHOCYTES % (AUTO) 19.1 % (20.5-51.1); MEAN CORPUSCULAR HEMOGLOBIN 29 pg (27-31); MEAN CORPUSCULAR HGB CONC 34 g/dL (33-37); MEAN CORPUSCULAR VOLUME 87 fL (80-94); MONOCYTES # (AUTO) 0.6 K/uL (0.8-1.0); MONOCYTES % (AUTO) 10.8 % (1.7-9.3); NEUTROPHILS # (AUTO) 3.6 K/uL (1.8-7.7); NEUTROPHILS % (AUTO) 62.2 % (42.2-75.2); PLATELET COUNT (AUTO) 206 K/uL (140-450); RED CELL DISTRIBUTION WIDTH 12.8 % (11.6-13.7); WHITE BLOOD COUNT (AUTO) 5.7 K/uL (4.8-10.8)
[2017-03-22 08:46] LABS: ANION GAP 7.5 (8-16); CARBON DIOXIDE 27.9 mmol/L (21-32); CREATININE 0.9 mg/dL (0.7-1.3); POTASSIUM 4.4 mmol/L (3.5-5.1)
[2017-03-22 08:55] LABS: MAGNESIUM 2.3 mg/dL (1.8-2.4); PHOSPHORUS 4.6 mg/dL (2.5-4.9)
[2017-03-22] MEDS ORDERED: FUROSEMIDE 40 MG/4 ML VIAL IVP SCH (09:00)
[2017-03-22] MEDS ORDERED: HYDROCHLOROTHIAZIDE 25 MG TAB PO SCH (09:00)
[2017-03-22] MEDS ORDERED: LISINOPRIL 10 MG TAB PO SCH (09:00)
--- NOTE | 2017-03-22 09:00 | NUR ---
PT SAID HE HAD THREE DIARRHEA YESTERDAY. ASKED PT TO CALL ME WHEN HE GOES TO RESTROOM AND DO NOT FLUSH TOILET. PT VERBALIZED UNDERSTANDING.
[2017-03-22] MEDS: LACTOBACILLUS RHAMNOSUS GG 1 EACH CAP PO SCH (10:05)
[2017-03-22] MEDS ORDERED: CLIN300C2 PO (12:54)
[2017-03-22] MEDS ORDERED: LISI10TA11 PO (12:54)
[2017-03-22] MEDS ORDERED: LACT10CA1 PO (12:54)
--- NOTE | 2017-03-22 15:00 | NUR ---
PT IS SLEEPING IN BED, NO S/S OF ACUTE DISTRESS NOTED.
--- NOTE | 2017-03-22 16:00 | NUR ---
PT DISCHARGED PER MD ORDER. DISCHARGE INSTRUCTIONS AND MEDICATION TEACHING PROVIDED. PRESCRIPTION GIVEN. PT VERBALIZED UNDERSTANDING. IV CATH DC'ED, CATH TIP INTACT, PRESSURE APPLIED. PT HAS BEEN PROVIDED WITH BUS PASS. PT STATED HE WILL GO TO HIS FRIEND'S HOUSE BY BUS. WALKED PT TO LOBBY. PT IS IN STABLE CONDITION AND LEFT WITH ALL HIS BELONGINGS.
--- NOTE | 2017-03-24 08:17 | NUR ---
WOUND CARE EVALUATION NOT DONE, PT. DISCHARGED.
== END 2017-03-22 16:00 | disposition home or self-care (01) | DRG 602 ==
LOC: MED 19:39 → MMU 03-21 02:16
PROVIDERS: ADMIT Student in an Organized Health Care Education/Training Program; ATTEND Student in an Organized Health Care Education/Training Program
PROC: 3E0234Z Introduction of Serum, Toxoid and Vaccine into Muscle, Percutaneous Approach (ICD-10-PCS; principal; 2017-03-21)
DX: L03.116 Cellulitis of left lower limb (principal); N17.0 Acute kidney failure with tubular necrosis; E43 Unspecified severe protein-calorie malnutrition; D68.59 Other primary thrombophilia; E87.1 Hypo-osmolality and hyponatremia; E11.9 Type 2 diabetes mellitus without complications; Z68.36 Body mass index [BMI] 36.0-36.9, adult; E87.6 Hypokalemia; Z23 Encounter for immunization
CPT/HCPCS: 36415; 71045; 73130; 73562; 73610; 76770; 80048; 80053; 80305; 81001; 82150; 82948; 83036; 83605; 83690; 83735; 83880; 84100; 84436; 84439; 84443; 84479; 84484; 85025; 85610; 85730; 87040; 87081; 87086; 90471; 90715; 93925; 93970; 96365; 96375; 99285; J1815; J1885; J1940; J3490; J7030; J7060; Q0092